=== PATIENT | male | born 1960 | race Caucasian/White ===

== ENCOUNTER 2017-04-16 08:24 | Emergency (ER) | payer OTHER ==
[~2017-04-16] VITALS: Ht 180.3 cm; Wt 114.7 kg
[2017-04-16 08:27] VITALS: BP 159/91
== END 2017-04-16 09:17 | disposition home or self-care (01) ==
LOC: ED 09:11
DX: S61.212A Laceration without foreign body of right middle finger without damage to nail, initial encounter (principal); W26.8XXA Contact with other sharp object(s), not elsewhere classified, initial encounter; Y93.89 Activity, other specified; Y92.89 Other specified places as the place of occurrence of the external cause; Y99.8 Other external cause status
CPT/HCPCS: 12001; 99283

== ENCOUNTER 2018-11-08 10:12 | Emergency (ER) | payer OTHER ==
[~2018-11-08] VITALS: Ht 180.3 cm; Wt 109.4 kg
[2018-11-08 10:35] VITALS: BP 176/92
[2018-11-08] MEDS ORDERED: LIDOCAINE-MPF 1%, 5ML ONE (10:50)
[2018-11-08] MEDS ORDERED: DIPH,PERTUSS(ACELL),TET VAC/PF 0.5 ML IM-VACC ONE ×2 (11:00)
[2018-11-08] MEDS ORDERED: LIDOCAINE-MPF 1%, 5ML INFIL ONE (11:00)
== END 2018-11-08 11:59 | disposition home or self-care (01) ==
LOC: ED 10:43
DX: L03.012 Cellulitis of left finger (principal)
CPT/HCPCS: 10060; 90471; 90715

== ENCOUNTER 2020-02-19 08:51 | Emergency (ER) | payer OTHER ==
[~2020-02-19] VITALS: Ht 180.3 cm; Wt 123.0 kg
[~2020-02-19 08:51] MED LIST: NAPR220C2 PO
--- NOTE | 2020-02-19 09:32 | NUR ---
FIRST CONTACT WITH PT. PT HAS C/O LEFT SIDED NECK MASS ONSET X 5 DAYS. PT. STATES ASSOCIATED PAIN. PT. DENIES FEVER. PT'S AOX4. RESPS EVEN AND UNLABORED. BP/SPO2 MONITORS IN PLACE. CALL LIGHT WITHIN REACH. PA AT BEDSIDE TO EVALUATE AT THIS TIME.
--- NOTE | 2020-02-19 09:44 | NUR ---
PT IN CT AT THIS TIME.
--- NOTE | 2020-02-19 10:01 | NUR ---
PT BACK TO ROOM FROM CT AT THIS TIME.
--- NOTE | 2020-02-19 10:50 | NUR ---
CXR AT BEDSIDE AT THIS TIME. PT'S AOX4. RESPS EVEN AND UNLABORED.
[2020-02-19 11:28] VITALS: BP 164/87
--- NOTE | 2020-02-19 11:31 | NUR ---
TASK RN: Patient/Caregiver given discharge instructions and they have confirmed that they understand the instructions. Patient ambulatory with steady gait.
== END 2020-02-19 11:32 | disposition home or self-care (01) ==
LOC: ED 09:53
DX: M54.2 Cervicalgia (principal); E04.1 Nontoxic single thyroid nodule; R06.02 Shortness of breath
CPT/HCPCS: 70490; 71045; 99284

== ENCOUNTER → 2020-03-04 | Outpatient (CLI) | payer OTHER ==
[2020-03-04 12:19] LABS: BASOPHILS # (AUTO) 0.02 x10^3/uL (0-0.1); BASOPHILS % (AUTO) 0 % (0-1); EOSINOPHILS # (AUTO) 0.12 x10^3/uL (0-0.4); EOSINOPHILS % (AUTO) 2 % (1-7); LYMPHOCYTES # (AUTO) 0.99 x10^3/uL (1-3.4); LYMPHOCYTES % (AUTO) 18 % (22-44); MD NO; MEAN CORPUSCULAR HGB CONC 33.3 g/dL (33.2-36.2); MEAN PLATELET VOLUME 8.4 fL (7.4-10.4); MONOCYTES # (AUTO) 0.49 x10^3/uL (0.2-0.8); MONOCYTES % (AUTO) 9 % (2-9); NEUTROPHILS # (AUTO) 3.84 x10^3/uL (1.8-6.8); NEUTROPHILS % (AUTO) 70 % (42-75); PLATELET COUNT 269 x10^3/uL (130-400); RED BLOOD COUNT 5.76 x10^6/uL (4.38-5.82); RED CELL DISTRIBUTION WIDTH 14.5 % (9.4-14.8)
[2020-03-04 12:30] LABS: ANION GAP 7 mmol/L (5-15); CALCIUM 8.7 mg/dL (8.5-10.1); CHLORIDE 108 mmol/L (98-107)
[2020-03-04 12:39] LABS: MICROSCOPIC NOT IND
[2020-03-04 12:40] LABS: ALANINE AMINOTRANSFERASE 23 U/L (12-78); ALKALINE PHOSPHATASE 81 U/L (45-117); BILIRUBIN,TOTAL 0.6 mg/dL (0.2-1.0); CHOL/HDL RATIO 3.5; CHOLESTEROL, TOTAL 230 mg/dL (140-239); CREATININE 1.25 mg/dL (0.7-1.3); HDL CHOL % 29 % (26-37); HDL CHOLESTEROL (DIRECT) 66 mg/dL (40-60); LDL CHOLESTEROL,CALCULATED 142 mg/dL (54-169); LDL/HDL RATIO 2.2 (0.5-3.0); TOTAL PROTEIN 7.4 g/dL (6.4-8.2); TRIGLYCERIDES 111 mg/dL (50-200); VLDL CHOLESTEROL 22 mg/dL (0-25)
== END | disposition home or self-care (01) ==
LOC: LAB 11:48
PROVIDERS: ATTEND Family Medicine
DX: I16.0 Hypertensive urgency (principal); D44.0 Neoplasm of uncertain behavior of thyroid gland
CPT/HCPCS: 36415; 80053; 80061; 81003; 82043; 82088; 82533; 82570; 83835; 84244; 84481; 85025; 86376; 86800

== ENCOUNTER → 2020-03-18 | Outpatient (CLI) | payer OTHER | END | disposition home or self-care (01) | LOC: CVU 07:37 | PROVIDERS: ATTEND Family Medicine | DX: I08.0 Rheumatic disorders of both mitral and aortic valves (principal); E04.1 Nontoxic single thyroid nodule; I16.0 Hypertensive urgency; I11.9 Hypertensive heart disease without heart failure | CPT/HCPCS: 78013; 93306; A9516 ==

== ENCOUNTER → 2020-04-21 | Outpatient (CLI) | payer OTHER ==
[2020-04-21 14:11] LABS: FREE T4 (FREE THYROXINE) 1.23 ng/dL (0.76-1.46)
== END | disposition home or self-care (01) ==
LOC: LAB 13:32
PROVIDERS: ATTEND Surgery
DX: E04.1 Nontoxic single thyroid nodule (principal)
CPT/HCPCS: 36415; 84432; 84439; 84443; 84480; 84481; 86376; 86800

== ENCOUNTER 2020-04-30 12:07 | Outpatient (CLI) | payer OTHER ==
[~2020-04-30 12:07] MED LIST changes: +LIDOCAINE 1%, 20ML ONE
== END 2020-04-30 23:59 | disposition home or self-care (01) ==
LOC: RAD 12:07
PROVIDERS: ATTEND Surgery
DX: E04.1 Nontoxic single thyroid nodule (principal); Z79.899 Other long term (current) drug therapy
CPT/HCPCS: 10005; 76536; 88173; 88305; J3490; 60300

== ENCOUNTER → 2020-09-10 | Outpatient (CLI) | payer OTHER ==
[~2020-09-10] MED LIST changes: -LIDOCAINE 1%, 20ML ONE
== END | disposition home or self-care (01) ==
LOC: STAR 09:13
PROVIDERS: ATTEND Anesthesiology
DX: Z20.828 Contact with and (suspected) exposure to other viral communicable diseases (principal)
CPT/HCPCS: 87635

== ENCOUNTER 2020-09-16 10:13 | Day surgery (SDC) | payer OTHER ==
[~2020-09-16] VITALS: Ht 180.3 cm; Wt 124.5 kg
[~2020-09-16 10:13] MED LIST changes: +EPHEDRINE 50 MG/ML, 1ML IVPush PRN; +FENTANYL PF 100 MCG/2ML IV PRN; +HYDROmorphone 1 MG/ML, 1ML INJ IVPush PRN; +LABETALOL 5MG/ML, 20ML IV PRN; +ONDANSETRON 2MG/ML, 2ML IVPush PRN; +OXYcodone 5 MG/5 ML ORAL.SOL UDC PO PRN; +PROMETHAZINE 25 MG/ML, 1ML IVPush PRN; +hydrALAzine 20 MG/ML, 1ML IV PRN
[2020-09-16 10:55] VITALS: BP 134/84
[2020-09-16] MEDS ORDERED: aspirin PO (10:59)
[2020-09-16] MEDS ORDERED: PRAZ1CAP2 PO (10:59)
[2020-09-16] MEDS ORDERED: MELO15TA24 PO (10:59)
[2020-09-16] MEDS ORDERED: CHLO25TA PO (10:59)
[2020-09-16] MEDS ORDERED: AMLO1CAP PO (10:59)
[2020-09-16] MEDS ORDERED: ACETAMINOPHEN 500 MG TABLET PO ONE (11:00)
[2020-09-16] MEDS ORDERED: CHLORHEXIDINE 15 ML UDC MM ONE (11:00)
[2020-09-16] MEDS ORDERED: LACTATED RINGERS 1,000 ML IV SCH (11:00)
[2020-09-16] MEDS ORDERED: FENTANYL PF 100 MCG/2ML ONE (11:10)
[2020-09-16] MEDS ORDERED: MIDAZOLAM 1 MG/ML, 2ML ONE (11:46)
[2020-09-16] MEDS ORDERED: LIDOCAINE-MPF 2% ,5ML ONE (11:56)
[2020-09-16] MEDS ORDERED: KETOROLAC 30 MG/1 ML ONE (11:56)
[2020-09-16] MEDS ORDERED: SUCCINYLCHOLINE 20 MG/ML, 10ML ONE (11:59)
[2020-09-16] MEDS ORDERED: PROPOFOL 10 MG/ML, 20ML ONE (11:59)
[2020-09-16] MEDS ORDERED: CEFAZOLIN 1,000 MG ONE (11:59)
[2020-09-16] MEDS ORDERED: ONDANSETRON 2MG/ML, 2ML ONE (11:59)
[2020-09-16] MEDS ORDERED: OXYcodone 5 MG/5 ML ORAL.SOL UDC ONE (12:55)
[2020-09-16] MEDS ORDERED: OXYC5CAP2 PO (13:33)
== END 2020-09-16 15:15 | disposition home or self-care (01) ==
LOC: OUT 10:13
PROVIDERS: ATTEND Orthopaedic Surgery Foot and Ankle Surgery
DX: M76.61 Achilles tendinitis, right leg (principal); I10 Essential (primary) hypertension; Z79.1 Long term (current) use of non-steroidal anti-inflammatories (NSAID); Z79.82 Long term (current) use of aspirin; Z79.899 Other long term (current) drug therapy; Z98.890 Other specified postprocedural states
CPT/HCPCS: 27654; 27687; C1762; J0330; J0690; J1885; J2250; J2405; J2704; J3010; J7120

== ENCOUNTER 2021-04-11 08:49 | Emergency (ER) | payer OTHER ==
[~2021-04-11] VITALS: Ht 180.3 cm; Wt 126.0 kg
[~2021-04-11 08:49] MED LIST changes: +AMLO1CAP PO; +CHLO25TA PO; -EPHEDRINE 50 MG/ML, 1ML IVPush PRN; -FENTANYL PF 100 MCG/2ML IV PRN; -HYDROmorphone 1 MG/ML, 1ML INJ IVPush PRN; -LABETALOL 5MG/ML, 20ML IV PRN; +MELO15TA24 PO; -ONDANSETRON 2MG/ML, 2ML IVPush PRN; +OXYC5CAP2 PO; -OXYcodone 5 MG/5 ML ORAL.SOL UDC PO PRN; +PRAZ1CAP2 PO; -PROMETHAZINE 25 MG/ML, 1ML IVPush PRN; +aspirin PO; -hydrALAzine 20 MG/ML, 1ML IV PRN
[2021-04-11 08:54] VITALS: BP 156/84
--- NOTE | 2021-04-11 09:04 | NUR ---
PT AMBULATORY TO ROOM FROM TRIAGE, PT CONNECTED TO MONITORS. CALL LIGHT WITHIN REACH. PT STATES HE HAD A FAMILY MEMBER TEST POSITIVE FOR COVID AND NEEDS TO BE TESTED PER EMPLOYEE [employer]. PT STATES HE HAS DIARRHEA FOR A COUPLE DAYS, DENIES SOB/N/V
--- NOTE | 2021-04-11 09:06 | NUR ---
PA AT BS
--- NOTE | 2021-04-11 09:40 | NUR ---
PT SWABBED FOR COVID, WALKED SAMPLE TO LAB
--- NOTE | 2021-04-11 09:43 | NUR ---
Patient given discharge instructions and they have confirmed that they understand the instructions. Patient ambulatory with steady gait.
== END 2021-04-11 09:44 ==
LOC: ED 09:43
DX: R19.7 Diarrhea, unspecified (principal); Z20.822 Contact with and (suspected) exposure to COVID-19
CPT/HCPCS: 99283; U0003; U0005